=== PATIENT | female | born 1960 | race Caucasian/White ===

== ENCOUNTER 2017-04-11 16:29 | Outpatient (CLI) | payer BC ==
[~2017-04-11] VITALS: Ht 177.8 cm; Wt 81.0 kg
[~2017-04-11 16:29] MED LIST: AMAN100T PEG; BENZ1LOZ5 PO; CLOTCRE TOPICAL; DOCU100S PEG; ENOX80P SQ; FAMO1TAB37 PEG; LANTUS2P SQ; LEVE500S PEG; LEVO88TA2 PEG; METO25TA3 PEG; MIDO5TAB PEG; PLAV75TA29 PEG; TYLE325T PEG; [UNRECOGNIZED DRUG - CODE] TOPICAL
[2017-04-11] MEDS ORDERED: PROPOFOL 500 MG/50 ML INJ 100 ML ONE (16:41)
[2017-04-11] MEDS ORDERED: DO NOT ADM ANY ANTICOAGULANT DRUGS PRN (17:25)
[2017-04-11 17:34] VITALS: TEMP 97.8
[2017-04-11] MEDS ORDERED: ceFAZolin INJ 1,000 MG VIAL IV ONE (17:38)
--- NOTE | 2017-04-11 17:39 | PD.PROCEDR ---
GI Procedure REFERRING PHYSICIAN Dr Nguyen PROCEDURE PERFORMED EGD with PEG placement INDICATION FOR PROCEDURE CVA, dysphagia, patient had pulled out her old PEG tube yesterday PROCEDURE: The procedure, risks and benefits were discussed with Ms. Salazar and informed consent was obtained. Anesthesia sedated her with Diprivan. She was placed in the left lateral decubitus position. EGD: The Pentax videoscope was introduced through the oropharynx and advanced to the second portion of the duodenum under direct visualization. Retroflexion was performed in the stomach. FINDINGS: Esophagus this was normal The stomach this too was normal but there was a small hiatal hernia The duodenum this too appeared to be unremarkable within normal limits Following the evaluation of the stomach and the duodenum the stomach was insufflated with air and the area of PEG placement was identified at the site of the old PEG tube the area was prepped and draped in usual fashion and I was able to pass an Angiocath into the stomach with endoscopic verification and through which a guidewire was passed this was retrieved with the scope into that a PEG tube was attached and pulled into place and thereafter secured in usual fashion The patient tolerated procedure well and there are no immediate complications ESTIMATED BLOOD LOSS: None SPECIMENS REMOVED: None COMPLICATIONS: None IMPRESSION: Small hiatal hernia Successful PEG placement PLAN: PLAN: 1. May use PEG tube for medications today 2. May start feeding today 3. May obtain nutritional consult for tube feeding 4. Flush tube with 50 cc of water every 4-6 hours 5. Always flush tube after feedings 6. Apply abdominal binder as necessary 7. Clamp G-tube after use and flush. Dale Cabello MD Apr 11, 2017 17:39
[2017-04-11 18:00] VITALS: BP 144/82
[2017-04-11] MEDS ORDERED: POVIDONE IODINE 5% (ANTISEPSIS KIT) 4 APPLICATIONS EACH NARE PRN (18:00)
[2017-04-11] MEDS ORDERED: CHLORHEXIDINE GLUCONATE 2 % 1 PACK (2 CLOTHS) TOPICAL PRN (18:00)
[2017-04-11] MEDS ORDERED: INSULIN HUMAN REGULAR 1,000 UNITS/10 ML VIAL SQ PRN (18:00)
[2017-04-11] MEDS ORDERED: LACTATED RINGER'S 1000 ML IV PRN (18:00)
[2017-04-11] MEDS ORDERED: METOPROLOL TARTRATE 25 MG TAB PO PRN (18:00)
[2017-04-11] MEDS ORDERED: SODIUM CHLORID 0.9% 500 ML IV PRN (18:00)
[2017-04-11 18:05] VITALS: PULSE 105; RESP 18; O2SAT 97
[2017-04-14] MEDS ORDERED: [UNRECOGNIZED DRUG - MIXTURE] (11:44)
[2017-04-28] MEDS ORDERED: COMMODE PAIL WI1 MIS (12:18)
[2017-04-28] MEDS ORDERED: WHEEMIS3 (12:18)
== END 2017-04-11 18:05 ==
LOC: HOR 16:29 → HSDI 17:23 → HOR 18:05
PROVIDERS: ATTEND Internal Medicine Gastroenterology
DX: Z43.1 Encounter for attention to gastrostomy (principal)
CPT/HCPCS: J0690